=== PATIENT | female | born 1985 | race Two or more races ===

== ENCOUNTER 2023-04-18 17:04 | Emergency (ER) | payer MEDICAID ==
[2023-04-18] MEDS ORDERED: Aspirin 81 MG Tab.Chew PO ONE (17:22)
[2023-04-18] MEDS ORDERED: Sodium Chloride 0.9% 10 ML Syringe FLUSH PRN (17:22)
[2023-04-18] MEDS ORDERED: Labetalol 100 MG/20 ML MDV IVPUSH ONE ×3 (17:23→19:36)
[2023-04-18 17:41] LABS: BASOPHILS PERCENT AUTO 0.3 % (0.0-1.0); EOSINOPHILS ABSOLUTE AUTO 0.2 K/mm3 (0.0-0.4); EOSINOPHILS PERCENT AUTO 1.9 % (0.0-6.0); HEMATOCRIT 43.7 % (37.0-47.0); HEMOGLOBIN 14.2 gm/dl (12.0-16.0); IMMATURE GRAN ABSOLUTE AUTO 0.02 K/mm3 (0.00-0.05); IMMATURE GRAN PERCENT AUTO 0.2 % (0.0-0.4); LYMPHOCYTES ABSOLUTE AUTO 1.6 K/mm3 (1.0-4.8); LYMPHOCYTES PERCENT AUTO 17.5 % (24.0-44.0); MEAN CORPUSCULAR HEMOGLOBIN 26.3 pg (28.0-32.0); MEAN CORPUSCULAR HGB CONC 32.5 g/dl (32.0-36.0); MEAN CORPUSCULAR VOLUME 81.1 fl (83.0-99.0); MEAN PLATELET VOLUME 11.2 fl (9.4-12.3); MONOCYTES ABSOLUTE AUTO 0.5 K/mm3 (0.0-0.8); MONOCYTES PERCENT AUTO 5.6 % (0.0-8.0); NEUTROPHILS ABSOLUTE AUTO 6.7 K/mm3 (1.8-7.7); NEUTROPHILS PERCENT AUTO 74.5 % (41.0-71.0); PLATELET COUNT,PLT 267 K/mm3 (150-400); RED BLOOD CELL COUNT 5.39 M/mm3 (4.10-5.30); WHITE BLOOD CELL COUNT,WBC 8.96 K/mm3 (3.9-11.3)
[2023-04-18 18:09] LABS: A/G RATIO 0.9 (1-2); ALBUMIN 3.9 g/dl (3.4-5.0); ANION GAP 14.1 (5-15); BILIRUBIN TOTAL 0.4 mg/dL (0.2-1.0); CALCIUM 9.4 mg/dL (8.5-10.1); EST CRCL DRUG DOSING (CG) 61.51 mL/min; POTASSIUM,K 3.1 mEq/L (3.5-5.1); PROTEIN TOTAL,TP 8.4 g/dl (6.4-8.2)
[2023-04-18] MEDS ORDERED: Metoprolol Succinate 50 MG Tab.ER PO SCH (19:45)
[2023-04-18] MEDS ORDERED: Potassium Chloride 20 MEQ Tab.ER PO ONE (19:49)
[2023-04-18] MEDS ORDERED: hydrALAZINE 20 MG/ML SDV IVPUSH ONE (20:57)
[2023-04-18] MEDS ORDERED: Nitroglycerin 0.4 MG Tab.SL SL ONE (21:31)
[2023-04-18] MEDS ORDERED: Nitroglycerin/D5W 25 MG/250 ML BOTTLE IV SCH (22:15)
[2023-04-18] MEDS ORDERED: Sodium Chloride 0.9% 10 ML Syringe FLUSH ONE (22:45)
[2023-04-18] MEDS ORDERED: Sodium Chloride 0.9% 100 ML IV SCH (22:45)
[2023-04-18] MEDS ORDERED: Iopamidol 755 Mg/ML 100 ML Bottle IVPUSH ONE (22:45)
[2023-04-18] MEDS ORDERED: HYDROmorphone 0.5 MG/0.5 ML Syringe IVPUSH ONE (23:12)
[2023-04-18] MEDS ORDERED: Naloxone 0.4 MG/ML SDV IVPUSH PRN (23:12)
[2023-04-18] MEDS ORDERED: Heparin Sodium 5,000 Units/ML Vial IVPUSH ONE (23:33)
[2023-04-18] MEDS ORDERED: Heparin Sodium/D5W 25,000 UNITS/500 ML BAG IV SCH (23:45)
== END 2023-04-19 00:08 ==
LOC: JD.ED 17:04
DX: I16.1 Hypertensive emergency (principal); R07.9 Chest pain, unspecified; I10 Essential (primary) hypertension; Z86.16 Personal history of COVID-19
CPT/HCPCS: 36415; 71045; 71275; 80053; 83735; 83880; 84484; 85025; 85379; 85730; 93005; 96365; 96367; 96375; 96376; 99285; A9270; J0360; J1170; J1644; J2305; J3490; Q9967; 93010